=== PATIENT | female | born 1970 | race Two or more races ===

== ENCOUNTER 2017-07-26 18:25 | Emergency (ER) | payer MEDICAID ==
[~2017-07-26] VITALS: Ht 149.9 cm; Wt 84.8 kg
[2017-07-26 20:22] LABS: Basophils # (auto) 0 uL; Basophils % (auto) 0.5 % (0.0-2.0); Eosinophils # (auto) 0.3 uL; Eosinophils % (auto) 5.3 % (0.0-7.0); Hematocrit 40.7 % (36.0-46.0); Hemoglobin 13.3 g/dL (12.2-16.2); Lymphocytes # (auto) 1.9 uL; Lymphocytes % (auto) 39.1 % (10.0-50.0); Mean Corpuscular Hemoglobin 29.5 pg (28.0-32.0); Mean Corpuscular Hgb Conc. 32.7 g/dL (32.0-36.0); Mean Corpuscular Volume 90.2 fL (80.0-100.0); Monocytes # (auto) 0.8 uL; Neutrophils # (auto) 1.9 uL; Neutrophils % (auto) 39.1 % (37.0-80.0); Nucleated Red Blood Cells % 0.2 %; Platelet Count (auto) 258 10^3/uL (140-450); Red Blood Cells 4.51 10^6/uL (4.0-5.20); Red Cell Distribution Width 13.9 % (11.8-14.3); White Blood Cell 4.8 10^3/uL (4.4-10.8)
[2017-07-26 20:38] LABS: Albumin 3.3 g/dL (3.4-5.0); Calcium 8.6 mg/dL (8.5-10.1)
[2017-07-26 20:40] LABS: BUN/Creatinine Ratio 18.9
[2017-07-26 20:42] LABS: Bilirubin, Total 0.3 mg/dL (0.2-1.0); Total Protein 7.9 g/dL (6.4-8.2)
[2017-07-27] MEDS ORDERED: cefTRIAXone SOD 1,000 MG VL IM ONE (04:45)
[2017-07-27] MEDS ORDERED: NEOMYCIN-BACITRACIN-POLYM 15GM TOP OINT TOP SCH (04:45)
[2017-07-27] MEDS ORDERED: BACITRACIN-POLYMYXIN B TOPICAL OINT UD TOP ONE (04:48)
[2017-07-27 06:06] VITALS: BP 117/68
== END 2017-07-27 05:57 | disposition home or self-care (01) ==
LOC: ER 18:25
DX: J06.9 Acute upper respiratory infection, unspecified (principal); L98.499 Non-pressure chronic ulcer of skin of other sites with unspecified severity
CPT/HCPCS: 36415; 71045; 80053; 85025; 87077; 87186; 87205; 96372; 99285; J0696

== ENCOUNTER 2018-03-21 13:34 | Emergency (ER) | payer MEDICAID ==
[~2018-03-21] VITALS: Ht 149.9 cm; Wt 90.7 kg
[2018-03-21 15:12] VITALS: BP 126/61
== END 2018-03-21 16:39 | disposition home or self-care (01) ==
LOC: ER 13:39
DX: R51 Headache (principal); M54.2 Cervicalgia; R11.2 Nausea with vomiting, unspecified

== ENCOUNTER 2022-05-17 12:24 | Emergency (ER) | payer MEDICAID ==
[~2022-05-17] VITALS: Ht 149.9 cm; Wt 100.0 kg
[2022-05-17 13:22] VITALS: BP 148/83
[2022-05-17] MEDS ORDERED: NEOMYCIN-BACITRACIN-POLYM UNITDOSE PKG TOP OINT TOP ONE (13:30)
[2022-05-17] MEDS ORDERED: IBUPROFEN 600 MG TAB PO ONE (13:45)
== END 2022-05-17 13:38 | disposition home or self-care (01) ==
LOC: ER 12:24
DX: S01.83XA Puncture wound without foreign body of other part of head, initial encounter (principal); W22.8XXA Striking against or struck by other objects, initial encounter; Y93.89 Activity, other specified; Y92.89 Other specified places as the place of occurrence of the external cause; Y99.8 Other external cause status